=== PATIENT | male | born 1960 | race Caucasian/White ===

== ENCOUNTER → 2018-04-23 17:04 | Outpatient (REF) | payer BC, SELFPAY | LOC: LAB 17:04 | PROVIDERS: Visit Provider Physician Assistant | DX: J02.9 Acute pharyngitis, unspecified (principal) | CPT/HCPCS: 87070; 87077; 87147 ==

== ENCOUNTER → 2019-11-19 09:12 | Outpatient (CLI) | payer OTHER, SELFPAY ==
[2019-11-19 10:09] LABS: Aspartate Aminotransferase 25 IU/L (17-59); BUN Creatinine Ratio 18.5 (6-22); Blood Urea Nitrogen 15 mg/dL (9-20); Calcium 9.7 mg/dL (8.4-10.2); Carbon Dioxide 31 mmol/L (22-32); Chloride 102 mmol/L (98-107); Cholesterol 179 mg/dL (140-199); Estimated Glomerular Filt Rate > 60.0 mL/min (>60); Glucose 116 mg/dL (80-110); HDL Cholesterol 55 mg/dL (40-60); HEMOLYSIS < 15 (0-50); LDL Cholesterol Calculated 93 mg/dL (<100); Potassium 4.7 mmol/L (3.4-5.1); Sodium 138 mmol/L (137-145); Triglycerides 157 mg/dL (35-150)
[2019-11-19 10:38] LABS: Prostate Specific Antigen 0.394 ng/mL (0.10-4.00)
== END ==
PROVIDERS: Referring Provider Internal Medicine; Visit Provider Internal Medicine
DX: Z00.00 Encounter for general adult medical examination without abnormal findings (principal); I10 Essential (primary) hypertension; E78.2 Mixed hyperlipidemia
CPT/HCPCS: 36415; 80048; 80061; 84153; 84450

== ENCOUNTER → 2020-01-06 08:08 | Outpatient (CLI) | payer OTHER, SELFPAY ==
--- NOTE | 2020-01-06 | DI.US.S_ITS ---
PROCEDURE: US CAROTID DOPPLER BI INDICATIONS: STENOSIS TECHNIQUE: Color and pulse Doppler interrogation was performed of both carotid systems, with image documentation and velocity measurements. COMPARISON: None. FINDINGS: Stenosis calculations are based on SRU (Society [employer] in Ul[employer]) criteria. The flow velocities and the arterial waveforms are normal within both carotid arterial systems. Atherosclerotic plaque is seen on both sides. The estimated degree of internal carotid artery stenosis is less than 50%. Antegrade flow is confirmed within both vertebral arteries. IMPRESSION: No hemodynamically significant stenosis is seen. Atherosclerotic plaque is noted bilaterally. Dictated by: Campbell Tavares M.D. on 01/06/2020 at 8:17 Approved by: Campbell Tavares M.D. on 01/06/2020 at 8:18
== END ==
PROVIDERS: PCP Internal Medicine; Referring Provider Internal Medicine; Visit Provider Internal Medicine
DX: I65.23 Occlusion and stenosis of bilateral carotid arteries (principal)
CPT/HCPCS: 93880

== ENCOUNTER → 2020-08-02 14:34 | Outpatient (CLI) | payer OTHER, SELFPAY ==
[2020-08-02 15:38] LABS: COVID19 -Nasal RAPID Negative (Negative)
== END ==
PROVIDERS: PCP Internal Medicine; Visit Provider Physician Assistant
DX: Z20.822 Contact with and (suspected) exposure to COVID-19 (principal)
CPT/HCPCS: 87635

== ENCOUNTER 2020-08-04 09:08 | Day surgery (SDC) | payer OTHER, SELFPAY ==
[2020-08-04] VITALS (7 sets, daily range): BP systolic 102–145; BP diastolic 72–92; PULSE 72–98; RESP 12–18; TEMP 36.1–36.2; O2SAT 93–99; BMI 38.7
[2020-08-04] MEDS: LACTATED RINGERS 1,000 ML 200 ML IV (09:31)
--- NOTE | 2020-08-04 10:50 | PM.HP.1 ---
History of Present Illness History of Present Illness Chief complaint: [facility] Patient History Medical History Excessive daytime sleepiness Hyperlipidemia Hypertension Insomnia Obesity (BMI 30-39.9) Obstructive sleep apnea Family & Social History Social History: household members family Tobacco & Substance use: Smoking Status Former smoker alcohol intake frequency a few times a week Substance Use Type marijuana Meds Home Medications and Allergies Home Medications Medication Instructions Recorded Confirmed Type cyclobenzaprine 10 mg tablet 10 mg PO TID 04/07/18 08/04/20 History atenolol 25 mg tablet 25 mg PO DAILY 06/19/18 08/04/20 History benzonatate 100 mg capsule 100 mg PO TID PRN 06/19/18 08/04/20 History cyanocobalamin (vitamin B-12) 1,000 mcg PO DAILY 06/19/18 08/04/20 History 1,000 mcg capsule lisinopril 40 mg tablet 40 mg PO DAILY 06/19/18 08/04/20 History multivitamin 1 tab PO DAILY 06/19/18 08/04/20 History simvastatin 20 mg tablet 20 mg PO BEDTIME 06/19/18 08/04/20 History tramadol 50 mg tablet 50 mg PO Q6H 06/19/18 08/04/20 History Allergies Allergy/AdvReac Type Severity Reaction Status Date / Time No Known Drug Allergies Allergy Verified 01/08/19 16:11 Review of Systems Review of Systems ROS: Yes All systems reviewed with the patient and are negative except as otherwise documented Exam Vital Signs (past 8 hours): - 08/04/20 09:18 Temperature 97 F L Pulse Rate 98 H Respiratory Rate 13 Blood Pressure 145/92 H Pulse Oximetry 96 Oxygen Delivery Method Room Air Oxygen Flow Rate 0 Narrative Exam Narrative: Awake alert and oriented x3, pupils equal round reactive to light, oropharynx clear, heart regular rate and rhythm, lungs clear to auscultation bilaterally, abdomen nontender and nondistended, extremities without edema, no gross neurologic deficits noted Assessment & Plan Assessment & Plan narrative: Personal history of colon polyps for colonoscopy COVID-19 COVID-19 status: Negative
--- NOTE | 2020-08-04 11:16 | P.OP.ENDO_ITS ---
Operative Date/Time/Diagnoses Date of procedure: 08/04/20 Procedure & Clinicians Study performed: Colonoscopy Moderate conscious sedation was administered by the endoscopy nurse and supervised by the endoscopist. The following parameters were monitored: Oxygen saturation, heart rate, blood pressure, and response to care. 5ng midazolam and 100mcg fentanyl Same procedure as scheduled: Yes Indications: Colon screening. Personal history of colon polyps. Date of last colonoscopy unknown Procedure Notes Procedure in detail: Prior to the procedure, history and physical was performed, and patient medications and allergies were reviewed. Preprocedure nursing history and assessment was reviewed. Patient identification and proposed proced ure were verified by the physician and nurse in the procedure room. The physical status of the patient was reassessed after the procedure. After informed consent was obtained including risks, benefits, and alternatives, the scope was passed under direct vision. Throughout the procedure, the patient's blood pressure, pulse, and oxygen saturations were monitored continuously. The colonoscope was introduced through the anus and advanced to the cecum as identified by the appendiceal orifice and ileocecal valve. The patient tolerated the procedure well. Bowel prep was deemed adequate to detect polyps greater than 5 mm. GERD and perianal examination unremarkable. Retroflexion in the rectum was unrevealing. The entire examined colon was normal appearing. Impression: Normal colonoscopy No specimens taken Sedation minutes: 20 Complications: other (No complications. EBL 0. ) Post-procedure Plan for aftercare: Repeat colonoscopy in 5 years for screening purposes Resume home medications Resume previous diet Patient has a contact number available for emergencies. The signs and symptoms of potential delayed complications were discussed with the patient. Return to normal activities tomorrow. Written discharge instructions were provided to the patient. Discharge home with escort
[2020-08-04] MEDS: fentaNYL 250 MCG/5 ML INJ IV (11:18)
[2020-08-04] MEDS: MIDAZOLAM 5 MG/5 ML VIAL IV (11:19)
== END 2020-08-04 12:02 | disposition home or self-care (01) ==
PROVIDERS: PCP Internal Medicine; Referring Provider Internal Medicine; Visit Provider Internal Medicine
PROC: 0DJD8ZZ Inspection of Lower Intestinal Tract, Via Natural or Artificial Opening Endoscopic (ICD-10-PCS; CPT 45378; principal; 2020-08-04 10:30)
DX: Z12.11 Encounter for screening for malignant neoplasm of colon (principal); Z86.010 Personal history of colon polyps; G47.33 Obstructive sleep apnea (adult) (pediatric); E66.9 Obesity, unspecified; I10 Essential (primary) hypertension; E78.5 Hyperlipidemia, unspecified
CPT/HCPCS: 45378; J2250; J3010